=== PATIENT | female | born 1970 | race Caucasian/White ===

== ENCOUNTER → 2024-03-08 15:56 | Outpatient (REF) | payer BC, SELFPAY | LOC: RAD 15:56 | PROVIDERS: ATTENDING PHYSICIAN Nurse Practitioner | DX: R74.8 Abnormal levels of other serum enzymes (principal) | CPT/HCPCS: 76700 ==

== ENCOUNTER → 2024-03-23 11:18 | Outpatient (REF) | payer BC, SELFPAY | LOC: DHSLP 11:18 | PROVIDERS: ATTENDING PHYSICIAN Nurse Practitioner | DX: G47.33 Obstructive sleep apnea (adult) (pediatric) (principal) | CPT/HCPCS: 95800 ==